=== PATIENT | female | born 2005 | race Caucasian/White ===

== ENCOUNTER 2023-10-05 22:21 | Emergency (ER) | payer OTHER ==
[~2023-10-05] VITALS: Ht 147.3 cm; Wt 54.4 kg
[2023-10-05 22:27] VITALS: BP 124/76; PULSE 88; RESP 18; TEMP 97.6; O2SAT 98
[2023-10-06 00:05] LABS: APPEARANCE,URINE CLEAR (CLEAR); BILIRUBIN,URINE NEGATIVE (NEGATIVE); BLOOD, URINE NEGATIVE (NEGATIVE); COLOR,URINE YELLOW (YELLOW); LEUKOCYTE ESTERASE ,URINE NEGATIVE (NEGATIVE); NITRITE, URINE NEGATIVE (NEGATIVE); PROTEIN,URINE NEGATIVE (NEGATIVE); UGLUCOSE NEGATIVE (NEGATIVE); UROBILINOGEN,URINE 0.2 EU/dL (0.2 - 1)
[2023-10-06] MEDS ORDERED: ONDA-188 SL (00:49)
[2023-10-06] MEDS ORDERED: BENZ200C4 PO (00:49)
== END 2023-10-06 01:04 | disposition home or self-care (01) ==
LOC: MED 22:21
DX: J06.9 Acute upper respiratory infection, unspecified (principal); R11.10 Vomiting, unspecified; J45.909 Unspecified asthma, uncomplicated; Z79.1 Long term (current) use of non-steroidal anti-inflammatories (NSAID); Z79.899 Other long term (current) drug therapy; Z88.0 Allergy status to penicillin
CPT/HCPCS: 81003; 81025; 99283